=== PATIENT | female | born 1995 | race Caucasian/White ===

== ENCOUNTER 2024-04-22 16:36 | Emergency (ER) | payer OTHER, SELFPAY ==
--- NOTE | ~2024-04-22 | CT_ITS ---
CT facial bones wo con Ordering provider: Hussain Gomes MD History: . left eyebrow infection/ swelling, possible spider bite . Comparison: None. Technique: Thin slice axial CT of the facial bones was performed without contrast. Coronal and sagit con reformatted images were also obtained. . Automated exposure control and iterative reconstruction technique were employed. The dose-length product was 278.53 mGy-cm. FINDINGS: PARANASAL SINUSES: Well aerated. Mild right nasal septal deviation. BONES: No facial fracture including no nasal bone fracture. Multiple hypodensities in the lower jazmyne ble which may indicate dental caries. The largest seen on the left side which may indicate dental cys t. Clinical correlation and follow-up advised. ORBITS AND SUPERFICIAL SOFT TISSUES: The optic globes and orbits are normal. Soft tissue swelling see n anterior to the left orbit which may indicate cellulitis. No definite intra-orbital inflammatory ch anges. No abscess formation seen. VISUALIZED MASTOIDS: Well aerated. LIMITED VISUALIZED BRAIN PARENCHYMA: Normal. IMPRESSION: Soft tissue swelling anterior to the left orbit suggestive of cellulitis. No definite intraorbital in flammatory changes. Multiple cystic areas in the lower mandible. Clinical correlation and follow-up advised Reviewed, dictated and finalized at location A. 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 No de finite intraorbital inflammatory changes. Multiple cystic areas in the lower mandible. Clinical correlation and follow-up advised
[2024-04-22 16:36] VITALS: BP 156/86; PULSE 126; RESP 20; TEMP 37.2; O2SAT 100
--- NOTE | 2024-04-22 16:48 | ED_ITS ---
HPI - Skin/Abscess/Foreign Bdy General Chief complaint: Skin/Abscess/Foreign Body Stated complaint: left eye swollen Source: patient Mode of arrival: ambulatory Limitations: no limitations History of Present Illness HPI narrative: Patient is a 29-year-old female with a left upper eyelid swelling and redness for the past 4 days. She is on antibiotics of clindamycin for dental at this time. No injury to the face. MD complaint: insect bite/sting ( Possible) and abscess/boil ( left upper eyelid) Onset (ago): day(s) (4) Tetanus up to date: yes ( in the past 10 years) Location: face ( left upper eyelid) Severity: moderate Severity scale (1-10): 4 Quality: sharp Pain Consistency: constant Relieving factors: none Exacerbating factors: palpation Context: other ( patient has dental problems and is on clindamycin which should cross cover MRSA but appears not to be working) Associated symptoms: malaise Treatments prior to arrival: other ( clindamycin) Related Data Allergies Allergy/AdvReac Type Severity Reaction Status Date / Time No Known Allergies Allergy Verified 04/22/24 16:43 Review of Systems Review of Systems: All systems reviewed & are unremarkable except as noted in HPI and below Constitutional: Constitutional: Reports no additional constitutional complaints Eyes: Eyes: Reports no additional eye complaints ENT: Reports system reviewed and no additional complaints, except as documented Cardiovascular: Cardiovascular: Reports no additional cardiovascular complaints Respiratory: Respiratory: Reports no additional respiratory complaints Gastrointestinal: Gastrointestinal: Reports no additional gastrointestinal complaints Genitourinary: Genitourinary: Reports no additional female genitourinary complaints Musculoskeletal: Musculoskeletal: Reports no additional musculoskeletal complaints Integumentary/Breasts: Skin/Breast: Reports system reviewed and no additional complaints, except as docu Neurologic: Reports system reviewed and no additional complaints, except as documented Psychiatric: Psychiatric: Reports no additional psychiatric complaints Endocrine: Endocrine: Reports no additional endocrine complaints Hematologic/Lymphatic: Hematologic/Lymphatic: Reports no additional hematologic/lymphatic complaints Allergic/Immunologic: Allergic/Immunologic: Reports no additional allergic/immunologic complaints Exam Const: General: healthy appearing Nutritional Appearance: well nourished Orientation/consciousness: patient oriented x3 HENMT: Head: normal to inspection Ears: external ears normal Face/Nose/Sinus: Normal external nose present Eyes: Conjunctivae: conjunctivae normal Pupils: Equal, round and reactive pupils present EOM: EOMs intact bilaterally Neck: Neck: normal visual inspection Chest: Chest palpation & inspection: normal inspection of the chest Resp: Effort & Inspection: normal respiratory effort and not labored Auscultation: clear to auscultation bilaterally and no crackles Cardio: Rate: regular rate Rhythm: regular rhythm Heart sounds: no murmurs GI: Inspection: non-distended Auscultation: normal bowel sounds and bowel sounds present : General: Yes bladder normal to palpation Back/Spine/Pelvis: Back: no CVA tenderness Skin: General skin exam: No normal color Rashes: rash noted Wounds: wound noted Other: left upper eyelid has a 3 and half by 2 cm area of erythema and a nidus of infection in the central area with opening present and it has been draining already at this time; left eyelid is pushed down from the swelling Neuro: General: patient oriented x3 Cranial nerves: Yes Nystagmus not pre sent Speech: normal speech Extrem: General: normal to inspection Psych: Mental Status: mental status grossly normal Affect: normal affect Attitude: cooperative Course Vital Signs Vital signs: Vital Signs Temperature 37.2 C 04/22/24 16:36 Pulse Rate 126 H 04/22/24 16:36 Respiratory Rate 20 04/22/24 16:36 Blood Pressure 156/86 H 04/22/24 16:36 Pulse Oximetry 100 04/22/24 16:36 Oxygen Delivery Room Air 04/22/24 16:36 Temperature 37.2 C 04/22/24 16:36 Pulse Rate 126 H 04/22/24 16:36 Respiratory Rate 20 04/22/24 16:36 Blood Pressure 156/86 H 04/22/24 16:36 Pulse Oximetry 100 04/22/24 16:36 Oxygen Delivery Room Air 04/22/24 16:36 MDM - Skin/Abscess/Foreign Bdy MDM Narrative Medical decision making narrative: patient is a 29-year-old female with a left upper eyelid / eyebrow skin infection with abscess/ boil that is draining. We will do a CT scan and antibiotics at this time. We will need to stop the clindamycin and changed to a different antibiotic. the CT scan of the facial bones shows periorbital cellulitis and not orbital cellulitis clarified with the radiologist. This is not infecting the orbit. We will go with Rocephin at this time and change her clindamycin. She will go home with Augmentin and Bactrim. Imaging Data Attestation: I personally reviewed and interpreted this imaging study as follows: Radiologist's impression: CT scan of the facial bones shows cellulitis of periorbital region on the left and not orbital per radiologist Discharge Plan Discharge Clinical Impression: Cellulitis Qualifiers: Site of cellulitis: face Qualified Code(s): L03.211 - Cellulitis of face Patient Disposition: Home, Self-Care Condition: Stable Instructions: Antibiotic Form, Cellulitis (ED) Additional Instructions: please follow-up with the primary doctor in the next week. Come back to the ER if you are not getting better in the next 2-3 days. Prescriptions: New amoxicillin-pot clavulanate 875-125 mg tablet 1 tablet PO BID 10 Days Qty: 20 0RF sulfamethoxazole-trimethoprim [Bactrim DS] 800-160 mg tablet 1 tablet PO BID 10 Days Qty: 20 0RF Follow-up/Referrals: UNKNOWN,DOCTOR [Primary Care Provider] - Time of Disposition: 18:08
[2024-04-22 18:08] VITALS: BP 150/82; PULSE 99; RESP 12; TEMP 36.9; O2SAT 100
[2024-04-22] MEDS: cefTRIAXone 1 GM, LIDOCAINE HCL 1% LOCAL INJ 2.1 ML IM (18:14)
[2024-04-22] MEDS: SULFAMETHOXAZOLE/TRIMETHOPRIM 800/160 MG DS TABLET 1 TAB PO (18:14)
--- NOTE | 2024-04-22 18:23 | PC.NURSE ---
pt declined to stay for 15 minute observation after im injection .
== END 2024-04-22 18:19 | disposition home or self-care (01) ==
PROVIDERS: Emergency Provider Emergency Medicine
DX: L03.211 Cellulitis of face (principal)
CPT/HCPCS: 70486; 96372; 99284; A9270; J0696; J2003